=== PATIENT | male | born 1990 | race Caucasian/White ===

== ENCOUNTER → 2017-11-19 | Day surgery (SDC) | payer BC ==
[2017-11-15 10:47] LABS: BASOPHILS % 0.2 % (0.0-1.0); EOSINOPHILS # (AUTO) 0.1 (0.0-0.4); EOSINOPHILS % 0.9 % (0.0-6.0); HEMATOCRIT 50.2 % (38.2-49.6); HEMOGLOBIN 16.6 g/dL (14.0-18.0); LYMPHOCYTES # (AUTO) 2.6 (1.0-3.2); LYMPHOCYTES % 20.1 % (18.0-39.1); MEAN CORPUSCULAR HEMOGLOBIN 31.4 pg (28-32); MEAN CORPUSCULAR HGB CONC 33.1 g/dL (31-35); MEAN CORPUSCULAR VOLUME 94.9 fL (81-99); MONOCYTES # (AUTO) 1.3 (0.2-0.8); MONOCYTES % 10.1 % (4.4-11.3); NEUTROPHILS # (AUTO) 8.8 (2.1-6.9); NEUTROPHILS % 67.9 % (38.7-80.0); PLATELET COUNT 274 x10e3/uL (140-360); RED BLOOD COUNT 5.29 x10e6/uL (4.3-5.7); RED CELL DISTRIBUTION WIDTH 13.6 % (11.7-14.4)
[~2017-11-19] MED LIST: BUPIVACAINE 0.25% 30ML SDV INJ ONE; CEFAZOLIN SOD 1 GM VIAL ONE; CLINDAMYCIN PO; DESFLURANE 240 ML BTL INH ONE; DEXAMETHASONE SOD PHOS INJ 4 MG/ML VIAL ONE; FENTANYL CITRATE/PF 100MCG/2 ML INJ ONE; GLYCOPYRROLATE INJ 1MG/ 5 ML SYR ONE; KETOROLAC TROMETHAMINE 30 MG/ML VIAL ONE; LIDOCAINE HCL 2% LOCAL INJ 5 ML SDV VIAL INJ ONE; MIDAZOLAM HCL 2 MG/2 ML VIAL ONE; MORPHINE SULFATE INJ 10 MG/ML ONE; NEOSTIGMINE 5 MG/5ML SYR ONE; ONDANSETRON HCL INJ 2 MG/ML VIAL ONE; PROPOFOL IV EMULSION 10 MG/ML 20 ML VIAL ONE; ROCURONIUM BROMIDE 10 MG/ML 5ML VIAL ONE; SULFAMETH PO
--- NOTE | 2017-11-19 12:31 | Operative Report ---
DATE OF PROCEDURE: November 19, 2017 PREOPERATIVE DIAGNOSIS: Complex pilonidal cyst with multiple sinuses. POSTOPERATIVE DIAGNOSIS: Complex pilonidal cyst with multiple sinuses. OPERATION PERFORMED: Excision of pilonidal cyst and sinuses with rotational gluteal flap closure. ANESTHESIA: General. COMPLICATIONS: None. ESTIMATED BLOOD LOSS: Minimal. DESCRIPTION OF PROCEDURE: With the patient lying in bed in the prone position under good general endotracheal anesthesia, the perineum and sacral area were prepped Betadine solution and draped in the usual manner. An elliptical incision was made to include the pilonidal cyst opening at the midline raphe and the sinuses that were present. The sinuses extended awkwardly into the lower lumbar region. The whole area was included in the excision. The excision was deepened through the subcutaneous tissue down to the gluteal fascia and then was completely and totally removed from the midline and sent for pathological examination. Gluteal flaps were then developed on both sides and the fascia was raised on both sides to be able to reapproximate the wound. Perfect hemostasis was ascertained. The fascia was then reapproximated at the midline using interrupted sutures of 2-0 Vicryl. The subcutaneous tissue was approximated with 2-0 Vicryl and the skin was closed with interrupted vertical mattress sutures of 2-0 and 3-0 silk. All layers were infiltrated on the way out with solution of 0.25% Marcaine. A dressing was applied. The sponge, lap, and needle count was correct. Patient tolerated the procedure well and returned to the recovery room in stable condition. Job#: [id number] VAS
== END | disposition home or self-care (01) ==
LOC: OR 05:45
PROVIDERS: ATTEND Surgery
DX: L05.91 Pilonidal cyst without abscess (principal); F41.9 Anxiety disorder, unspecified; F17.290 Nicotine dependence, other tobacco product, uncomplicated
CPT/HCPCS: 11772; 36415; 85025; 88304; J0690; J1100; J1885; J2001; J2250; J2270; J2405

== ENCOUNTER 2017-12-23 04:32 | Emergency (ER) | payer BC ==
[~2017-12-23] VITALS: Ht 170.2 cm; Wt 79.4 kg
[~2017-12-23 04:32] MED LIST changes: -BUPIVACAINE 0.25% 30ML SDV INJ ONE; -CEFAZOLIN SOD 1 GM VIAL ONE; -DESFLURANE 240 ML BTL INH ONE; -DEXAMETHASONE SOD PHOS INJ 4 MG/ML VIAL ONE; -FENTANYL CITRATE/PF 100MCG/2 ML INJ ONE; -GLYCOPYRROLATE INJ 1MG/ 5 ML SYR ONE; -KETOROLAC TROMETHAMINE 30 MG/ML VIAL ONE; -LIDOCAINE HCL 2% LOCAL INJ 5 ML SDV VIAL INJ ONE; -MIDAZOLAM HCL 2 MG/2 ML VIAL ONE; -MORPHINE SULFATE INJ 10 MG/ML ONE; -NEOSTIGMINE 5 MG/5ML SYR ONE; -ONDANSETRON HCL INJ 2 MG/ML VIAL ONE; -PROPOFOL IV EMULSION 10 MG/ML 20 ML VIAL ONE; -ROCURONIUM BROMIDE 10 MG/ML 5ML VIAL ONE
--- NOTE | 2017-12-23 06:44 | Diagnostic Imaging Report ---
EXAMINATION: Head CT without contrast. HISTORY:Trauma. COMPARISON:None. TECHNIQUE: Multidetector axial images were obtained from the foramen magnum to the vertex without contrast. The images were reconstructed using brain and bone algorithms. Thin section brain images were reformatted into coronal and sagittal planes. Intravenous contrast: None IMAGE QUALITY: Acceptable. FINDINGS: Skull/scalp: No abnormality. Parenchyma: No abnormal density. No acute hemorrhage, mass or acute major vascular territorial infarct. Arteries: No density suggestive of thrombosis. Dural sinuses: No abnormal density suggestive of thrombosis. Ventricles: No hydrocephalus or displacement. Extra-axial spaces: No abnormal density. Brain volume: Normal for age. Craniocervical junction: No mass, Chiari malformation, or basilar invagination. Sella: No mass. Paranasal/mastoid sinuses: Imaged portions unremarkable. IMPRESSION: No intracranial abnormality. Signed by: Dr. Kymberly Osorio M.D. on 12/23/2017 6:40 AM
[2017-12-23] MEDS ORDERED: TETANUS/DIPHTHERIA TOX ADULT 0.5 ML SYR IM ONE (06:45)
--- NOTE | 2017-12-23 06:47 | Diagnostic Imaging Report ---
History: Trauma. Comparison studies: None Technique: Axial images were obtained through the cervical region.. Coronal and sagittal images reconstructed from the axial data.. Intravenous contrast: None Findings: Fractures: None. Soft tissue injuries: None. Atlantoaxial articulation: Intact. Alignment: Normal lordosis. No scoliosis. Cervicomedullary junction: No abnormalities. The foramen magnum is patent. Soft tissues: No abnormalities. Vertebrae: No fractures, infection or neoplasm. Degenerative changes: C3-C4: Mild right uncovertebral arthrosis results in mild right foraminal stenosis. IMPRESSION: 1. No acute cervical spine abnormalities. 2. Ligament, spinal cord and or vascular abnormalities cannot be excluded on the basis of this examination. Signed by: Dr. Kymberly Osorio M.D. on 12/23/2017 6:44 AM
--- NOTE | 2017-12-23 06:52 | Diagnostic Imaging Report ---
History:Trauma. Comparison studies: None Technique: Axial images were obtained through the maxillofacial region. Coronal and sagittal images reconstructed from the axial data. Intravenous contrast: None Findings: Suboptimal evaluation due to significant motion artifacts. Soft tissues: Mild left periauricular soft tissue edema. Bones: Suboptimal evaluation due to motion artifacts particularly in the evaluation of the nasal bones and orbit. Orbits: Globes: Grossly intact of the extent visualized, due to motion artifacts. Extra or intraconal abnormalities: None. Paranasal sinuses: Clear IMPRESSION: 1. Suboptimal evaluation due to significant motion artifacts particularly in the evaluation of the nasal bones and the orbit. Despite the limitation no grossly displaced acute fracture. 2. Mild left periauricular soft tissue edema. Signed by: Dr. Kymberly Osorio M.D. on 12/23/2017 6:48 AM
== END 2017-12-23 07:26 | disposition home or self-care (01) ==
LOC: ER 04:32
DX: S01.312A Laceration without foreign body of left ear, initial encounter (principal); Y04.0XXA Assault by unarmed brawl or fight, initial encounter; Y92.008 Other place in unspecified non-institutional (private) residence as the place of occurrence of the external cause; F14.19 Cocaine abuse with unspecified cocaine-induced disorder; F12.10 Cannabis abuse, uncomplicated
CPT/HCPCS: 70450; 70486; 72125; 90471; 90714; 99283